=== PATIENT | female | born 1965 | race African-American/Black ===

== ENCOUNTER 2017-09-30 17:58 | Inpatient (IN) | payer SELFPAY ==
[2017-09-30 18:39] LABS: POC GLUCOSE 81 mg/dL (70-99)
[2017-09-30 19:14] LABS: ADD MAN DIFF? NO
[2017-09-30 19:26] LABS: BASO # 0.1 x10^3/uL (0.0-0.2); BASO % 2 % (0-3); EOS # 0.1 x10^3/uL (0.0-0.7); EOS % 2 % (0-3); HEMATOCRIT 34.1 % (36.0-47.0); HEMOGLOBIN 11.1 g/dL (12.0-15.5); LYMPH # 2.1 x10^3/uL (1.0-4.8); LYMPH % 46 % (24-48); MEAN CORPUSCULAR HEMOGLOBIN 26 pg (25-35); MEAN CORPUSCULAR HGB CONC 33 g/dL (31-37); MEAN CORPUSCULAR VOLUME 81 fL (79-100); MONO # 0.4 x10^3/uL (0.0-1.1); MONO % 8 % (0-9); NEUT # 1.9 x10^3uL (1.8-7.7); NEUT % 42 % (31-73); PLATELET COUNT 201 x10^3/uL (140-400); RED CELL DISTRIBUTION WIDTH 16.1 % (11.5-14.5); WHITE BLOOD COUNT 4.6 x10^3/uL (4.0-11.0)
[2017-09-30 19:37] LABS: ANION GAP 13 (6-14); BLOOD UREA NITROGEN 17 mg/dL (7-20); CALCIUM 8.1 mg/dL (8.5-10.1); CARBON DIOXIDE 25 mmol/L (21-32); CHLORIDE 103 mmol/L (98-107); CREATININE 1.3 mg/dL (0.6-1.0); GFR 43.4; GLUCOSE 87 mg/dL (70-99); POTASSIUM 3.4 mmol/L (3.5-5.1); SODIUM 141 mmol/L (136-145)
[2017-09-30 19:41] LABS: TROPONINI < 0.017 ng/mL (0.000-0.055)
[2017-09-30 19:43] LABS: ALBUMIN 3.7 g/dL (3.4-5.0); ALK PHOS 82 U/L (46-116); ALT (SGPT) 20 U/L (14-59); AST (SGOT) 25 U/L (15-37); DIRECT BILIRUBIN 0.1 mg/dL (0.0-0.2); LIPASE 367 U/L (73-393); TOTAL BILIRUBIN 0.2 mg/dL (0.2-1.0); TOTAL PROTEIN 7.2 g/dL (6.4-8.2)
[2017-09-30 19:45] LABS: THYROID STIM HORMONE (TSH) 0.283 uIU/mL (0.358-3.74)
[2017-09-30 19:47] LABS: ETHANOL 471 mg/dL (0-10)
[2017-09-30 19:47] LABS: CKMB INDEX 0.2 % (0-4); CKMB MASS 0.9 ng/mL (0.0-3.6); CREATINE KINASE 392 U/L (26-192)
[2017-09-30] MEDS: MULTIVIT INFUSN,ADULT 4,VIT K 10 ML, THIAMINE 100 MG, FOLIC ACID 1 MG in IV NORMAL SALI... IV (19:55)
[2017-09-30 20:00] LABS: BILIRUBIN,URINE NEGATIVE (NEG); CLARITY,URINE CLEAR; COLOR,URINE YELLOW; GLUCOSE,URINE NEGATIVE (NEG); NITRITE,URINE NEGATIVE (NEG); PROTEIN,URINE NEGATIVE (NEG-TRACE); UROBILINOGEN,URINE 0.2 mg/dL (0.2 mg/dL)
[2017-09-30 20:07] LABS: BARBITURATES NEG (NEG); BENZODIAZEPINES NEG (NEG); CANNABINOIDS NEG (NEG); COCAINE NEG (NEG); METHADONE NEG (NEG); OPIATES NEG (NEG); PHENCYCLIDINE NEG (NEG)
[2017-09-30 20:09] LABS: AMPHETAMINE/METHAMPHETAMINE NEG (NEG); ETHANOL, URINE POS (NEG)
[2017-09-30 20:19] LABS: BACTERIA,URINE 0 /HPF (0-FEW); RBC,URINE 0 /HPF (0-2); SQUAMOUS EPITHELIAL CELL,UR FEW /LPF; TRICHOMONAS,URINE PRESENT; WBC,URINE OCC /HPF (0-4)
[2017-09-30] MEDS: IV NORMAL SALINE 1000ML BAG 1,000 ML IV (20:45)
[2017-09-30] MEDS ORDERED: ONDANSETRON PF 4 MG/2 ML VIAL. IV (22:30)
[2017-09-30] MEDS: POTASSIUM CL 40MEQ D5-0.45NACL 1,000 ML IV (23:27)
[2017-10-01] MEDS ORDERED: PNEUMOCOCCAL VAX SCREEN BY RX. MC
[2017-10-01 04:11] LABS: TROPONINI < 0.017 ng/mL (0.000-0.055)
[2017-10-01 05:26] LABS: ADD MAN DIFF? NO
[2017-10-01 05:44] LABS: BASO % 1 % (0-3); EOS % 1 % (0-3); HEMATOCRIT 32.4 % (36.0-47.0); HEMOGLOBIN 10.3 g/dL (12.0-15.5); LYMPH # 2.2 x10^3/uL (1.0-4.8); LYMPH % 61 % (24-48); MEAN CORPUSCULAR HEMOGLOBIN 26 pg (25-35); MEAN CORPUSCULAR HGB CONC 32 g/dL (31-37); MEAN CORPUSCULAR VOLUME 83 fL (79-100); MONO # 0.2 x10^3/uL (0.0-1.1); MONO % 5 % (0-9); NEUT # 1.2 x10^3uL (1.8-7.7); NEUT % 32 % (31-73); PLATELET COUNT 172 x10^3/uL (140-400); RED BLOOD COUNT 3.91 x10^6/uL (3.50-5.40); RED CELL DISTRIBUTION WIDTH 16.1 % (11.5-14.5); WHITE BLOOD COUNT 3.7 x10^3/uL (4.0-11.0)
[2017-10-01 06:08] LABS: TROPONINI < 0.017 ng/mL (0.000-0.055)
[2017-10-01 06:32] LABS: ALK PHOS 67 U/L (46-116); ALT (SGPT) 17 U/L (14-59); ANION GAP 12 (6-14); AST (SGOT) 21 U/L (15-37); BLOOD UREA NITROGEN 15 mg/dL (7-20); BUN/CREATININE RATIO 14 (6-20); CALCIUM 7.5 mg/dL (8.5-10.1); CARBON DIOXIDE 26 mmol/L (21-32); CHLORIDE 111 mmol/L (98-107); CREATININE 1.1 mg/dL (0.6-1.0); GFR 63.6; GLUCOSE 65 mg/dL (70-99); POTASSIUM 3.5 mmol/L (3.5-5.1); SODIUM 149 mmol/L (136-145); TOTAL BILIRUBIN 0.3 mg/dL (0.2-1.0); TOTAL PROTEIN 6.1 g/dL (6.4-8.2)
[2017-10-01] MEDS ORDERED: LORazepam 0.5 MG TABLET PO (11:30)
[2017-10-01 12:14] LABS: FREE T4 0.81 ng/dL (0.76-1.46)
[2017-10-01] MEDS: FOLIC ACID 1 MG TABLET. PO (12:28)
[2017-10-01] MEDS: THIAMINE 100 MG TABLET. PO (12:28)
== END 2017-10-01 14:40 | disposition home or self-care (01) | DRG 896 ==
LOC: ER 17:58 → 6 SOUTH 22:00
PROVIDERS: Internal Medicine
DX: F10.229 Alcohol dependence with intoxication, unspecified (principal); G92 Toxic encephalopathy; Y90.8 Blood alcohol level of 240 mg/100 ml or more; Z82.49 Family history of ischemic heart disease and other diseases of the circulatory system; Z88.0 Allergy status to penicillin
CPT/HCPCS: 36415; 71045; 80048; 80053; 80076; 80307; 81001; 82553; 82962; 83690; 83735; 84439; 84443; 84481; 84484; 85025; 93005; 96365; 96366; 99285; 99285-25; 99406; G0480; J7030; J7042